=== PATIENT | female | born 1965 | race Caucasian/White ===

== ENCOUNTER 2017-08-07 16:12 | Inpatient (IN) | payer OTHER ==
--- NOTE | 2017-08-07 17:16 | ED ---
General Adult HPI - General Chief complaint: Weakness Stated complaint: Fatigue Time Seen by Provider: 08/07/17 16:31 Source: patient, RN notes reviewed Mode of arrival: wheelchair Limitations: no limitations - History of Present Illness Initial comments: 51-year-old female presents for evaluation of generalized weakness. Patient also reports shortness of breath. His been present for several months. Denies focal weakness. Denies chest pain. States her weakness has been also progressing over several months. Denies fever or chills. Denies headache. Denies vision changes. Denies nausea vomiting or diarrhea. Patient's chronic medical problems include COPD, and hypothyroidism. Patient states her primary care physician recently increased her thyroid medication. She takes albuterol as needed for her COPD. She also reports intermittent cough. Shortness of breath and cough have been constant for several months. - Related Data Home Medications Medication Instructions Recorded Confirmed Albuterol Inhaler [Ventolin Hfa 1 - 2 puff INHALATION RT-Q6H PRN 08/07/17 Inhaler] Albuterol Nebulized [Ventolin 2.5 mg INHALATION RT-Q6H PRN 08/07/17 08/07/17 Nebulized] Budesonide/Formoterol Fumarate 2 puff INHALATION RT-BID 08/07/17 08/07/17 [Symbicort 80-4.5 Mcg Inhaler] Levothyroxine Sodium [Synthroid] 175 mcg PO DAILY 08/07/17 08/07/17 Allergies Allergy/AdvReac Type Severity Reaction Status Date / Time No Known Allergies Allergy Verified 08/07/17 16:42 Review of Systems ROS Statement: Those systems with pertinent positive or pertinent negative responses have been documented in the HPI. ROS Other: All systems not noted in ROS Statement are negative. Past Medical History Past Medical History: COPD, Thyroid Disorder History of Any Multi-Drug Resistant Organisms: None Reported Past Surgical History: No Surgical Hx Reported Past Psychological History: No Psychological Hx Reported Smoking Status: Former smoker Past Alcohol Use History: Occasional Past Drug Use History: None Reported General Exam Limitations: no limitations General appearance: alert, in no apparent distress Head exam: Present: atraumatic, normocephalic Eye exam: Present: normal appearance, PERRL ENT exam: Present: normal exam, mucous membranes moist Neck exam: Present: normal inspection. Absent: tenderness, meningismus Respiratory exam: Present: normal lung sounds bilaterally. Absent: respiratory distress, wheezes Cardiovascular Exam: Present: regular rate, normal rhythm GI/Abdominal exam: Present: soft. Absent: distended, tenderness, guarding Extremities exam: Present: normal inspection, normal capillary refill, other ( Bilateral DP pulses 2+). Absent: pedal edema Neurological exam: Present: alert, oriented X3, CN II-XII intact. Absent: motor sensory deficit Psychiatric exam: Present: normal affect, normal mood Skin exam: Present: warm, dry, intact. Absent: cyanosis, diaphoretic Course Vital Signs 08/07/17 08/07/17 08/07/17 16:24 17:50 18:30 Temperature 98 F Pulse Rate 86 78 90 Respiratory 16 16 18 Rate Blood Pressure 187/93 206/98 208/100 O2 Sat by Pulse 100 99 99 Oximetry EKG Findings - EKG Comments: EKG Findings:: EKG shows normal sinus rhythm, ventricular rate 82, para 178, QRS duration 94, QTC 441, T-wave abnormality in the precordium, no ST segment elevation or depression Medical Decision Making - Medical Decision Making 51-year-old female presenting with generalized weakness and shortness of breath. Patient denies chest pain. Workup includes normal CBC, stable hemoglobin, lactic acid is 3.5, with no clinical signs of dehydration, this may be secondary to hypoperfusion, patient will receive repeat lactic acid after rehydration. troponin is negative. EKG shows T-wave inversion in precordium, no ST segment changes. TSH unremarkable. Chest x-ray shows no acute findings, CT of the brain is negative. Patient's blood pressure remains high, she has no history of hypertension. She receives IV hydralazine and started on Norvasc in the emergency department. Given the elevated blood pressure and EKG changes with no baseline for comparison patient will be admitted for further monitoring, serial troponins, and cardiology evaluation. Diagnosis: Hypertensive urgency, EKG changes - Lab Data Result diagrams: 08/07/17 16:55 08/07/17 16:55 Lab Results 08/07/17 08/07/17 08/07/17 Range/Units 16:55 16:55 16:55 WBC 9.5 (3.8-10.6) k/uL RBC 5.01 (3.80-5.40) m/uL Hgb 14.3 (11.4-16.0) gm/dL Hct 42.8 (34.0-46.0) % MCV 85.4 (80.0-100.0) fL MCH 28.6 (25.0-35.0) pg MCHC 33.5 (31.0-37.0) g/dL RDW 13.4 (11.5-15.5) % Plt Count 362 (150-450) k/uL Neutrophils % 58 % Lymphocytes % 32 % Monocytes % 5 % Eosinophils % 3 % Basophils % 0 % Neutrophils # 5.5 (1.3-7.7) k/uL Lymphocytes # 3.1 (1.0-4.8) k/uL Monocytes # 0.5 (0-1.0) k/uL Eosinophils # 0.2 (0-0.7) k/uL Basophils # 0.0 (0-0.2) k/uL PT (9.0-12.0) sec INR (<1.2) APTT (22.0-30.0) sec Sodium 140 (137-145) mmol/L Potassium 3.6 (3.5-5.1) mmol/L Chloride 106 (98-107) mmol/L Carbon Dioxide 22 (22-30) mmol/L Anion Gap 12 mmol/L BUN 10 (7-17) mg/dL Creatinine 0.80 (0.52-1.04) mg/dL Est GFR (MDRD) Af Amer >60 (>60 ml/min/1.73 sqM) Est GFR (MDRD) Non-Af >60 (>60 ml/min/1.73 sqM) Glucose 179 H (74-99) mg/dL Plasma Lactic Acid Aydin (0.7-2.0) mmol/L Calcium 9.1 (8.4-10.2) mg/dL Magnesium 2.1 (1.6-2.3) mg/dL Total Bilirubin 0.3 (0.2-1.3) mg/dL AST 28 (14-36) U/L ALT 48 (9-52) U/L Alkaline Phosphatase 137 H (38-126) U/L Total Creatine Kinase 63 (30-135) U/L CK-MB (CK-2) 0.5 (0.0-2.4) ng/mL CK-MB (CK-2) Rel Index 0.8 Troponin I <0.012 (0.000-0.034) ng/mL NT-Pro-B Natriuret Pep pg/mL Total Protein 7.5 (6.3-8.2) g/dL Albumin 4.2 (3.5-5.0) g/dL TSH 0.894 (0.465-4.680) mIU/L Urine Color Urine Appearance (Clear) Urine pH (5.0-8.0) Ur Specific [place] (1.001-1.035) Urine Protein (Negative) Urine Glucose (UA) (Negative) Urine Ketones (Negative) Urine Blood (Negative) Urine Nitrite (Negative) Urine Bilirubin (Negative) Urine Urobilinogen (<2.0) mg/dL Ur Leukocyte Esterase (Negative) Urine RBC (0-5) /hpf Urine WBC (0-5) /hpf Ur Squamous Epith Cells (0-4) /hpf Urine Bacteria (None) /hpf Urine Mucus (None) /hpf 08/07/17 08/07/17 08/07/17 Range/Units 16:55 16:55 16:55 WBC (3.8-10.6) k/uL RBC (3.80-5.40) m/uL Hgb (11.4-16.0) gm/dL Hct (34.0-46.0) % MCV (80.0-100.0) fL MCH (25.0-35.0) pg MCHC (31.0-37.0) g/dL RDW (11.5-15.5) % Plt Count (150-450) k/uL Neutrophils % % Lymphocytes % % Monocytes % % Eosinophils % % Basophils % % Neutrophils # (1.3-7.7) k/uL Lymphocytes # (1.0-4.8) k/uL Monocytes # (0-1.0) k/uL Eosinophils # (0-0.7) k/uL Basophils # (0-0.2) k/uL PT 9.6 (9.0-12.0) sec INR 0.9 (<1.2) APTT 22.4 (22.0-30.0) sec Sodium (137-145) mmol/L Potassium (3.5-5.1) mmol/L Chloride (98-107) mmol/L Carbon Dioxide (22-30) mmol/L Anion Gap mmol/L BUN (7-17) mg/dL Creatinine (0.52-1.04) mg/dL Est GFR (MDRD) Af Amer (>60 ml/min/1.73 sqM) Est GFR (MDRD) Non-Af (>60 ml/min/1.73 sqM) Glucose (74-99) mg/dL Plasma Lactic Acid Aydin 3.5 H* (0.7-2.0) mmol/L Calcium (8.4-10.2) mg/dL Magnesium (1.6-2.3) mg/dL Total Bilirubin (0.2-1.3) mg/dL AST (14-36) U/L ALT (9-52) U/L Alkaline Phosphatase (38-126) U/L Total Creatine Kinase (30-135) U/L CK-MB (CK-2) (0.0-2.4) ng/mL CK-MB (CK-2) Rel Index Troponin I (0.000-0.034) ng/mL NT-Pro-B Natriuret Pep 91 pg/mL Total Protein (6.3-8.2) g/dL Albumin (3.5-5.0) g/dL TSH (0.465-4.680) mIU/L Urine Color Urine Appearance (Clear) Urine pH (5.0-8.0) Ur Specific [place] (1.001-1.035) Urine Protein (Negative) Urine Glucose (UA) (Negative) Urine Ketones (Negative) Urine Blood (Negative) Urine Nitrite (Negative) Urine Bilirubin (Negative) Urine Urobilinogen (<2.0) mg/dL Ur Leukocyte Esterase (Negative) Urine RBC (0-5) /hpf Urine WBC (0-5) /hpf Ur Squamous Epith Cells (0-4) /hpf Urine Bacteria (None) /hpf Urine Mucus (None) /hpf 08/07/17 Range/Units 17:55 WBC (3.8-10.6) k/uL RBC (3.80-5.40) m/uL Hgb (11.4-16.0) gm/dL Hct (34.0-46.0) % MCV (80.0-100.0) fL MCH (25.0-35.0) pg MCHC (31.0-37.0) g/dL RDW (11.5-15.5) % Plt Count (150-450) k/uL Neutrophils % % Lymphocytes % % Monocytes % % Eosinophils % % Basophils % % Neutrophils # (1.3-7.7) k/uL Lymphocytes # (1.0-4.8) k/uL Monocytes # (0-1.0) k/uL Eosinophils # (0-0.7) k/uL Basophils # (0-0.2) k/uL PT (9.0-12.0) sec INR (<1.2) APTT (22.0-30.0) sec Sodium (137-145) mmol/L Potassium (3.5-5.1) mmol/L Chloride (98-107) mmol/L Carbon Dioxide (22-30) mmol/L Anion Gap mmol/L BUN (7-17) mg/dL Creatinine (0.52-1.04) mg/dL Est GFR (MDRD) Af Amer (>60 ml/min/1.73 sqM) Est GFR (MDRD) Non-Af (>60 ml/min/1.73 sqM) Glucose (74-99) mg/dL Plasma Lactic Acid Aydin (0.7-2.0) mmol/L Calcium (8.4-10.2) mg/dL Magnesium (1.6-2.3) mg/dL Total Bilirubin (0.2-1.3) mg/dL AST (14-36) U/L ALT (9-52) U/L Alkaline Phosphatase (38-126) U/L Total Creatine Kinase (30-135) U/L CK-MB (CK-2) (0.0-2.4) ng/mL CK-MB (CK-2) Rel Index Troponin I (0.000-0.034) ng/mL NT-Pro-B Natriuret Pep pg/mL Total Protein (6.3-8.2) g/dL Albumin (3.5-5.0) g/dL TSH (0.465-4.680) mIU/L Urine Color Light Yellow Urine Appearance Clear (Clear) Urine pH 5.5 (5.0-8.0) Ur Specific [place] 1.007 (1.001-1.035) Urine Protein Negative (Negative) Urine Glucose (UA) Negative (Negative) Urine Ketones Negative (Negative) Urine Blood Moderate H (Negative) Urine Nitrite Negative (Negative) Urine Bilirubin Negative (Negative) Urine Urobilinogen <2.0 (<2.0) mg/dL Ur Leukocyte Esterase Negative (Negative) Urine RBC 3 (0-5) /hpf Urine WBC <1 (0-5) /hpf Ur Squamous Epith Cells 1 (0-4) /hpf Urine Bacteria Rare H (None) /hpf Urine Mucus Rare H (None) /hpf Disposition Clinical Impression: Hypertensive urgency Disposition: ADMITTED IP TO THIS HOSP Condition: Stable Referrals: Cordelia Markham MD [Primary Care Provider] - 1-2 days Decision to Admit Reason: Admit from EC Decision Date: 08/07/17 Decision Time: 19:01
[2017-08-07 17:18] LABS: Basophils % (A) 0 %; CHCM 34.1; Eosinophils # (A) 0.2 k/uL (0-0.7); Eosinophils % (A) 3 %; HCT 42.8 % (34.0-46.0); HDW 3.15; HGB 14.3 gm/dL (11.4-16.0); Luc # (Auto) 0.15; Luc % (Auto) 2; Lymphocytes # (A) 3.1 k/uL (1.0-4.8); Lymphocytes % (A) 32 %; MCH 28.6 pg (25.0-35.0); MCHC 33.5 g/dL (31.0-37.0); MCV 85.4 fL (80.0-100.0); Mean Platelet Volume 6.8; Monocytes # (A) 0.5 k/uL (0-1.0); Monocytes % (A) 5 %; Neutrophils # (A) 5.5 k/uL (1.3-7.7); Neutrophils % (A) 58 %; RBC 5.01 m/uL (3.80-5.40); RDW 13.4 % (11.5-15.5); WBC 9.5 k/uL (3.8-10.6); WBC (Perox) 9.07
--- NOTE | 2017-08-07 17:20 | XR ---
EXAMINATION TYPE: XR chest 2V DATE OF EXAM: 08/07/2017 COMPARISON: NONE HISTORY: Short of breath TECHNIQUE: Frontal and lateral views of the chest are obtained. FINDINGS: Heart is normal. There are calcified granulomata in both lungs. Lungs are clear of consoli dation. There is no heart failure. Thoracic aorta is atheromatous. Bony thorax is intact. IMPRESSION: No active cardiopulmonary disease.
[2017-08-07 17:24] LABS: ALT 48 U/L (9-52); AST 28 U/L (14-36); Alkaline Phosphatase 137 U/L (38-126); Anion Gap 12 mmol/L; Blood Urea Nitrogen 10 mg/dL (7-17); Calcium 9.1 mg/dL (8.4-10.2); Carbon Dioxide 22 mmol/L (22-30); Chloride 106 mmol/L (98-107); Glucose 179 mg/dL (74-99); Magnesium 2.1 mg/dL (1.6-2.3); Non-African American GFR(MDRD) >60 (>60 ml/min/1.73 sqM); Potassium 3.6 mmol/L (3.5-5.1); Sodium 140 mmol/L (137-145); Total Bilirubin 0.3 mg/dL (0.2-1.3); Total Protein 7.5 g/dL (6.3-8.2)
[2017-08-07 17:29] LABS: Creatine Kinase 63 U/L (30-135)
[2017-08-07] MEDS ORDERED: SODIUM CHLORIDE 0.9% 1,000 ML IV ONE (17:30)
[2017-08-07 17:31] LABS: INR 0.9 (<1.2); Partial Thromboplastin Time 22.4 sec (22.0-30.0); Prothrombin Time 9.6 sec (9.0-12.0)
[2017-08-07 17:42] LABS: Creatine Kinase MB 0.5 ng/mL (0.0-2.4); Troponin I <0.012 ng/mL (0.000-0.034)
--- NOTE | 2017-08-07 17:45 | CT ---
EXAMINATION TYPE: CT brain wo con DATE OF EXAM: 08/07/2017 COMPARISON: NONE HISTORY: Weakness. CT DLP: 1008.3 mGycm Automated exposure control for dose reduction was used. FINDINGS: Ventricles have normal size. There is no mass effect nor midline shift. There is no sign of intracran ial hemorrhage. The calvarium is intact. IMPRESSION: NEGATIVE CT SCAN OF THE BRAIN.
[2017-08-07] MEDS: SODIUM CHLORIDE 0.9% 1,000 ML IV SCH (17:57)
[2017-08-07 18:07] LABS: Appearance,Urine Clear (Clear); Bacteria,Urine Rare /hpf; Bilirubin,Urine Negative (Negative); Glucose,Urine (UA) Negative (Negative); Ketones,Urine Negative (Negative); Leukocyte Esterase,Urine Negative (Negative); Mucus,Urine Rare /hpf; Nitrite,Urine Negative (Negative); PH, Urine 5.5 (5.0-8.0); Particle Count 757; Protein,Urine Negative (Negative); RBC,Urine 3 /hpf (0-5); Specific Gravity,Urine 1.007 (1.001-1.035); Squamous Epithelial Cell,Urine 1 /hpf (0-4); UA Billing (MACRO vs. MICRO) MICRO; Urobilinogen,Urine <2.0 mg/dL (<2.0); WBC,Urine <1 /hpf (0-5)
[2017-08-07] MEDS ORDERED: amLODIPine 5 MG TAB PO STA (18:08)
[2017-08-07] MEDS ORDERED: hydrALAZINE HCL 20 MG/ML 1 ML VIAL IVP STA (18:08)
[2017-08-07] MEDS ORDERED: ASPIRIN 325 MG TAB PO STA (18:54)
[2017-08-07] MEDS ORDERED: NALOXONE 0.4 MG/ML 1 ML VIAL IV PRN (19:01)
[2017-08-07] MEDS ORDERED: ACETAMINOPHEN TAB 325 MG TAB PO PRN (19:01)
[2017-08-07] MEDS ORDERED: ONDANSETRON 4 MG/2 ML VIAL IVP PRN (19:01)
[2017-08-07 23:31] LABS: Creatine Kinase 58 U/L (30-135)
[2017-08-07 23:42] LABS: Creatine Kinase MB 0.4 ng/mL (0.0-2.4); Troponin I <0.012 ng/mL (0.000-0.034)
[2017-08-08 05:51] LABS: Basophils % (A) 1 %; CH 28.6; CHCM 33.5; Eosinophils # (A) 0.2 k/uL (0-0.7); Eosinophils % (A) 3 %; HCT 40.3 % (34.0-46.0); HDW 2.93; HGB 13.2 gm/dL (11.4-16.0); Luc # (Auto) 0.15; Luc % (Auto) 2; Lymphocytes # (A) 2.6 k/uL (1.0-4.8); Lymphocytes % (A) 33 %; MCH 28.2 pg (25.0-35.0); MCHC 32.9 g/dL (31.0-37.0); MCV 85.9 fL (80.0-100.0); Mean Platelet Volume 6.9; Monocytes # (A) 0.5 k/uL (0-1.0); Monocytes % (A) 6 %; Neutrophils # (A) 4.5 k/uL (1.3-7.7); Neutrophils % (A) 56 %; RBC 4.69 m/uL (3.80-5.40); RDW 14.7 % (11.5-15.5)
[2017-08-08] MEDS: SODIUM CHLORIDE 0.9% 1,000 ML IV SCH (06:05)
[2017-08-08 06:10] LABS: ALT 49 U/L (9-52); AST 24 U/L (14-36); Alkaline Phosphatase 126 U/L (38-126); Anion Gap 8 mmol/L; Blood Urea Nitrogen 9 mg/dL (7-17); Calcium 9.3 mg/dL (8.4-10.2); Carbon Dioxide 27 mmol/L (22-30); Chloride 106 mmol/L (98-107); Glucose 115 mg/dL (74-99); Magnesium 2.1 mg/dL (1.6-2.3); Non-African American GFR(MDRD) >60 (>60 ml/min/1.73 sqM); Potassium 4.4 mmol/L (3.5-5.1); Sodium 141 mmol/L (137-145); Total Bilirubin 0.5 mg/dL (0.2-1.3); Total Protein 6.8 g/dL (6.3-8.2)
[2017-08-08 06:17] LABS: Creatine Kinase 53 U/L (30-135)
[2017-08-08 06:30] LABS: Creatine Kinase MB 0.5 ng/mL (0.0-2.4); Troponin I <0.012 ng/mL (0.000-0.034)
--- NOTE | 2017-08-08 08:15 | P.CRDCN ---
History of Present Illness Consult date: 08/08/17 Chief complaint: Generalized weakness History of present illness: This is a pleasant 51-year-old female patient with a past medical history significant for COPD and thyroid disorder without any history of CAD or diabetes or hypertension from before presented to the hospital complaining of fatigue and weakness for the last several days. She did not have any symptoms of chest pain or discomfort, she does have exertional dyspnea related to her COPD but it did not get worse lately. No dizziness or lightheadedness and no syncope. In the emergency room, she was hypertensive. She never been diagnosed with hypertension in the past. She was started on Norvasc at 5 mg by mouth daily and was admitted to the hospital for further evaluation. The EKG showed sinus rhythm with T-wave inversion in the anterolateral leads. I don't have any old EKG to compare it to this one. The cardiac enzymes were checked and came in to be unremarkable. The chest x-ray showed no acute abnormalities. She underwent a computed tomography scan of the brain which did not show any acute abnormalities as well. The patient stated that she never seen any quality process auditor in the past and never had any stress test or any cardiac testing before. Past Medical History Past Medical History: COPD, GERD/Reflux, Thyroid Disorder History of Any Multi-Drug Resistant Organisms: None Reported Past Surgical History: Uterine Ablation Additional Past Surgical History / Comment(s): "surgury on mucsles of eyes" Past Anesthesia/Blood Transfusion Reactions: No Reported Reaction Smoking Status: Former smoker - Past Family History Mother Family Medical History: Myocardial Infarction ([place]) Additional Family Medical History / Comment(s): mom from [place] age 56 Brother(s) Family Medical History: Cancer Father Family Medical History: Cancer Medications and Allergies Home Medications Medication Instructions Recorded Confirmed Type Albuterol Inhaler [Ventolin Hfa 1 - 2 puff INHALATION RT-Q6H PRN 08/07/17 History Inhaler] Albuterol Nebulized [Ventolin 2.5 mg INHALATION RT-Q6H PRN 08/07/17 08/07/17 History Nebulized] Budesonide/Formoterol Fumarate 2 puff INHALATION RT-BID 08/07/17 08/07/17 History [Symbicort 80-4.5 Mcg Inhaler] Levothyroxine Sodium [Synthroid] 175 mcg PO DAILY 08/07/17 08/07/17 History Allergies Allergy/AdvReac Type Severity Reaction Status Date / Time No Known Allergies Allergy Verified 08/07/17 16:42 Physical Exam Vitals: Vital Signs Temp Pulse Pulse Resp BP BP BP 08/08/17 03:15 97 F L 82 18 139/90 151/95 08/07/17 23:54 96.8 F L 85 18 150/90 08/07/17 21:03 156/85 08/07/17 20:00 96.5 F L 79 20 177/107 08/07/17 19:23 80 18 171/80 08/07/17 18:59 80 18 172/81 08/07/17 18:30 90 18 208/100 08/07/17 17:50 78 16 206/98 08/07/17 16:24 98 F 86 16 187/93 Pulse Ox 08/08/17 03:15 97 08/07/17 23:54 97 08/07/17 21:03 08/07/17 20:00 100 08/07/17 19:23 100 08/07/17 18:59 98 08/07/17 18:30 99 08/07/17 17:50 99 08/07/17 16:24 100 Intake and Output 08/07/17 08/08/17 08/08/17 22:59 06:59 14:59 Intake Total 200 800 Balance 200 800 Intake: IV 200 800 Sodium Chloride 0.9% 1, 200 800 000 ml @ 100 mls/hr IV . Q10H [facility] Rx#:[id number] Other: # Voids 2 Weight 102.058 kg 110.6 kg - Constitutional General appearance: no acute distress - Respiratory Respiratory: bilateral: CTA - Cardiovascular Rhythm: regular Heart sounds: normal: S1, S2 Results 08/08/17 05:22 08/08/17 05:22 Cardiac Enzymes 08/07/17 08/07/17 08/07/17 Range/Units 16:55 16:55 22:34 AST 28 (14-36) U/L CK-MB (CK-2) 0.5 0.4 (0.0-2.4) ng/mL Troponin I <0.012 <0.012 (0.000-0.034) ng/mL 08/08/17 08/08/17 Range/Units 05:22 05:22 AST 24 (14-36) U/L CK-MB (CK-2) 0.5 (0.0-2.4) ng/mL Troponin I <0.012 (0.000-0.034) ng/mL Coagulation 08/07/17 Range/Units 16:55 PT 9.6 (9.0-12.0) sec APTT 22.4 (22.0-30.0) sec CBC 08/07/17 08/08/17 Range/Units 16:55 05:22 WBC 9.5 8.0 (3.8-10.6) k/uL RBC 5.01 4.69 (3.80-5.40) m/uL Hgb 14.3 13.2 (11.4-16.0) gm/dL Hct 42.8 40.3 (34.0-46.0) % Plt Count 362 316 (150-450) k/uL Comprehensive Metabolic Panel 08/07/17 08/08/17 Range/Units 16:55 05:22 Sodium 140 141 (137-145) mmol/L Potassium 3.6 4.4 (3.5-5.1) mmol/L Chloride 106 106 (98-107) mmol/L Carbon Dioxide 22 27 (22-30) mmol/L BUN 10 9 (7-17) mg/dL Creatinine 0.80 0.89 (0.52-1.04) mg/dL Glucose 179 H 115 H (74-99) mg/dL Calcium 9.1 9.3 (8.4-10.2) mg/dL AST 28 24 (14-36) U/L ALT 48 49 (9-52) U/L Alkaline Phosphatase 137 H 126 (38-126) U/L Total Protein 7.5 6.8 (6.3-8.2) g/dL Albumin 4.2 3.7 (3.5-5.0) g/dL Current Medications Generic Name Dose Route Start Last Admin Trade Name Freq PRN Reason Stop Dose Admin Acetaminophen 650 mg 08/07/17 19:01 Tylenol Tab PO Q6HR PRN Mild Pain or Fever > 100.5 Amlodipine Besylate 5 mg 08/08/17 09:00 Norvasc PO 08/08/17 09:01 ONCE ONE Amlodipine Besylate 10 mg 08/09/17 09:00 Norvasc PO DAILY [facility] Sodium Chloride 1,000 mls @ 100 mls/hr 08/07/17 17:30 08/08/17 06:05 Saline 0.9% IV 100 mls/hr .Q10H [facility] Administration Naloxone HCl 0.2 mg 08/07/17 19:01 Narcan IV Q2M PRN Opioid Reversal Ondansetron HCl 4 mg 08/07/17 19:01 Zofran IVP Q8HR PRN Nausea And Vomiting Intake and Output 08/07/17 08/08/17 08/08/17 22:59 06:59 14:59 Intake Total 200 800 Balance 200 800 Intake: IV 200 800 Sodium Chloride 0.9% 1, 200 800 000 ml @ 100 mls/hr IV . Q10H [facility] Rx#:[id number] Other: # Voids 2 Weight 102.058 kg 110.6 kg 08/08/17 05:22 08/08/17 05:22 Assessment and Plan Assessment: This is a pleasant 51-year-old female patient with known COPD and thyroid disorder presented to the hospital with weakness and fatigue. The EKG showed sinus rhythm with T-wave inversion in the anterolateral leads concerning for ischemia if these changes are noted. The cardiac enzymes were checked and came in to be unremarkable. I am going to increase the dose of Norvasc to 10 mg by mouth daily for better blood pressure control. I will obtain an echocardiogram was Doppler. I discussed with her the need to have a stress test to rule out any severe underlying CAD behind her weakness and abnormal EKG but the patient would like to go home and have the test done as an outpatient. I will repeat the EKG this morning and get the echocardiogram and then decide about sending the patient home later on today.
[2017-08-08] MEDS ORDERED: amLODIPine 5 MG TAB PO SCH (09:00)
[2017-08-08] MEDS ORDERED: amLODIPine 5 MG TAB PO ONE (09:00)
[2017-08-08 09:04] VITALS: RESP 16
[2017-08-08 11:59] VITALS: BP 158/96; PULSE 84; TEMP 97.1
--- NOTE | 2017-08-08 14:57 | P.DS ---
Providers Date of admission: 08/07/17 19:01 Attending physician: Adithya Grier Consults: 08/07/17 19:02 Consult Physician Urgent Consulting Provider: Campos Garcia Consult Reason/Comments: Hypertensive urgency Do you want consulting provider notified?: Yes, Notify in am Primary care physician: Cordelia Markham [facility] Course: Please refer to my HPI patient's TSH is essentially within normal limits Patient Condition at Discharge: Stable Plan - Discharge Summary Discharge Rx Participant: No New Discharge Prescriptions: New amLODIPine [Norvasc] 5 mg PO DAILY #30 tab Continue Levothyroxine Sodium [Synthroid] 175 mcg PO DAILY Albuterol Nebulized [Ventolin Nebulized] 2.5 mg INHALATION RT-Q6H PRN PRN Reason: Shortness Of Breath Albuterol Inhaler [Ventolin Hfa Inhaler] 1 - 2 puff INHALATION RT-Q6H PRN PRN Reason: Shortness Of Breath Budesonide/Formoterol Fumarate [Symbicort 80-4.5 Mcg Inhaler] 2 puff INHALATION RT-BID Discharge Medication List Albuterol Inhaler [Ventolin Hfa Inhaler] 1 - 2 puff INHALATION RT-Q6H PRN [History] Albuterol Nebulized [Ventolin Nebulized] 2.5 mg INHALATION RT-Q6H PRN 08/07/17 [ History] Budesonide/Formoterol Fumarate [Symbicort 80-4.5 Mcg Inhaler] 2 puff INHALATION RT-BID 08/07/17 [History] Levothyroxine Sodium [Synthroid] 175 mcg PO DAILY 08/07/17 [History] amLODIPine [Norvasc] 5 mg PO DAILY #30 tab 08/08/17 [Rx] Follow up Appointment(s)/Referral(s): Campos Garcia MD [STAFF PHYSICIAN] - 3 Days (Please call to make a follow up appoitnment. Offices are closed at this time.) Cordelia Markham MD [Primary Care Provider] - 3 Days (Please call to make a follow up appoitnment. Offices are closed at this time.) Patient Instructions/Handouts: Hypertensive Crisis (DC), Hypertension (DC) Discharge/Stand Alone Forms: Work/Release Restrictions Form Discharge Disposition: HOME SELF-CARE
--- NOTE | 2017-08-08 14:57 | P.HPIM ---
History of Present Illness 51-year-old female came in with the complaints of dizziness patient had normal EKG patient was a valid by cardiology do not have an echo cardiac murmur available although patient does not have any valvular abnormalities clinically without any murmurs. Patient denied any fever, chills, nausea, vomiting patient blood pressure has come down patient's symptoms completely resolved at this point of time patient was started on amlodipine and will be discharged today. Patient had a CAT scan of the chest which is essentially negative patient denied any chest pain EKG showed some T-wave inversions in anterolateral leads patient was asked to follow-up with the cardiology as an outpatient and outpatient stress test at the time echocardiogram can be obtained as well. Patient does not have any signs or symptoms of sepsis at this time. Review of Systems REVIEW OF SYSTEMS: CONSTITUTIONAL: No fever, no malaise, no fatigue. HEENT: No recent visual problems or hearing problems. Denied any sore throat. CARDIOVASCULAR: No chest pain, orthopnea, PND, no palpitations, no syncope. PULMONARY: No shortness of breath, no cough, no hemoptysis. GASTROINTESTINAL: No diarrhea, no nausea, no vomiting, no abdominal pain. Normoactive bowel sounds. NEUROLOGICAL: No headaches, no weakness, no numbness. HEMATOLOGICAL: Denies any bleeding or petechiae. GENITOURINARY: Denies any burning micturition, frequency, or urgency. MUSCULOSKELETAL/RHEUMATOLOGICAL: Denies any joint pain, swelling, or any muscle pain. ENDOCRINE: Denies any polyuria or polydipsia. The rest of the 14-point review of systems is negative. Past Medical History Past Medical History: COPD, GERD/Reflux, Thyroid Disorder History of Any Multi-Drug Resistant Organisms: None Reported Past Surgical History: Uterine Ablation Additional Past Surgical History / Comment(s): "surgury on mucsles of eyes" Past Anesthesia/Blood Transfusion Reactions: No Reported Reaction Smoking Status: Former smoker - Past Family History Mother Family Medical History: Myocardial Infarction ([place]) Additional Family Medical History / Comment(s): mom from [place] age 56 Brother(s) Family Medical History: Cancer Father Family Medical History: Cancer Medications and Allergies Home Medications Medication Instructions Recorded Confirmed Type Albuterol Inhaler [Ventolin Hfa 1 - 2 puff INHALATION RT-Q6H PRN 08/07/17 History Inhaler] Albuterol Nebulized [Ventolin 2.5 mg INHALATION RT-Q6H PRN 08/07/17 08/07/17 History Nebulized] Budesonide/Formoterol Fumarate 2 puff INHALATION RT-BID 08/07/17 08/07/17 History [Symbicort 80-4.5 Mcg Inhaler] Levothyroxine Sodium [Synthroid] 175 mcg PO DAILY 08/07/17 08/07/17 History amLODIPine [Norvasc] 5 mg PO DAILY #30 tab 08/08/17 Rx Allergies Allergy/AdvReac Type Severity Reaction Status Date / Time No Known Allergies Allergy Verified 08/07/17 16:42 Physical Exam Vitals: Vital Signs Temp Pulse Pulse Resp BP BP BP 08/08/17 11:57 97.1 F L 84 16 158/96 08/08/17 11:44 88 16 08/08/17 08:00 96.7 F L 88 16 162/96 08/08/17 03:15 97 F L 82 18 139/90 151/95 08/07/17 23:54 96.8 F L 85 18 150/90 08/07/17 21:03 156/85 08/07/17 20:00 96.5 F L 79 20 177/107 08/07/17 19:23 80 18 171/80 08/07/17 18:59 80 18 172/81 08/07/17 18:30 90 18 208/100 08/07/17 17:50 78 16 206/98 08/07/17 16:24 98 F 86 16 187/93 Pulse Ox 08/08/17 11:57 95 08/08/17 11:44 08/08/17 08:00 97 08/08/17 03:15 97 08/07/17 23:54 97 08/07/17 21:03 08/07/17 20:00 100 08/07/17 19:23 100 08/07/17 18:59 98 08/07/17 18:30 99 08/07/17 17:50 99 08/07/17 16:24 100 Intake and Output 08/07/17 08/08/17 08/08/17 22:59 06:59 14:59 Intake Total 200 800 740 Output Total 650 Balance 200 800 90 Intake: IV 200 800 500 Sodium Chloride 0.9% 1, 200 800 500 000 ml @ 100 mls/hr IV . Q10H ERUM Rx#:[id number] Oral 240 Output: Urine 650 Other: # Voids 2 2 Weight 102.058 kg 110.6 kg PHYSICAL EXAMINATION: GENERAL: The patient is alert and oriented x3, not in any acute distress. Well developed, well nourished. HEENT: Pupils are round and equally reacting to light. EOMI. No scleral icterus. No conjunctival pallor. Normocephalic, atraumatic. No pharyngeal erythema. No thyromegaly. CARDIOVASCULAR: S1 and S2 present. No murmurs, rubs, or gallops. PULMONARY: Chest is clear to auscultation, no wheezing or crackles. ABDOMEN: Soft, nontender, nondistended, normoactive bowel sounds. No palpable organomegaly. MUSCULOSKELETAL: No joint swelling or deformity. EXTREMITIES: No cyanosis, clubbing, or pedal edema. NEUROLOGICAL: Gross neurological examination did not reveal any focal deficits. SKIN: No rashes. Results CBC & Chem 7: 08/08/17 05:22 08/08/17 05:22 Labs: Abnormal Lab Results - Last 24 Hours (Table) 08/07/17 08/07/17 08/07/17 Range/Units 16:55 16:55 17:55 Glucose 179 H (74-99) mg/dL Plasma Lactic Acid Aydin 3.5 H* (0.7-2.0) mmol/L Alkaline Phosphatase 137 H (38-126) U/L Urine Blood Moderate H (Negative) Urine Bacteria Rare H (None) /hpf Urine Mucus Rare H (None) /hpf 08/08/17 Range/Units 05:22 Glucose 115 H (74-99) mg/dL Plasma Lactic Acid Aydin (0.7-2.0) mmol/L Alkaline Phosphatase (38-126) U/L Urine Blood (Negative) Urine Bacteria (None) /hpf Urine Mucus (None) /hpf Assessment and Plan Plan: 1 dizziness and lightheadedness: Unsure of the etiology patient's symptoms resolved at this point of time patient also is hypertensive consistently because of which patient was started on low-dose of amlodipine patient was asked to check the blood pressure at home. As of the T-wave inversions on EKG cardiology is according an outpatient stress test. #2 T-wave inversions EKG further management as mentioned above unsure whether these inversions or new or old. #3 hypothyroidism #4 gastroesophageal reflux disease #5 COPD without any acute exacerbation
--- NOTE | 2017-08-08 15:07 | ECHOF ---
Referral Reason:HTN MEASUREMENTS -------- HEIGHT: 170.2 cm WEIGHT: 110.2 kg BP: 106/55 IVSd: 1.2 cm (0.6 - 1.1) LVIDd: 3.8 cm (3.9 - 5.3) LVPWd: 1.5 cm (0.6 - 1.1) IVSs: 1.4 cm LVIDs: 2.6 cm LVPWs: 1.2 cm Ao Diam: 3.5 cm (2.0 - 3.7) AV Cusp: 1.8 cm (1.5 - 2.6) LA Diam: 3.7 cm (2.7 - 3.8) MV E Dimas: 1.02 m/s MV DecT: 168 ms MV A Dimas: 0.89 m/s MV E/A Ratio: 1.15 RAP: 5.00 mmHg RVSP: 12.93 mmHg FINDINGS -------- Sinus rhythm. This was a techncally difficult study with suboptimal views, , Definity utilized for enhancement of i mages. The left ventricular size is normal. There is mild concentric left ventricular hypertrophy. Overa ll left ventricular systolic function is normal with, an EF between 55 - 60 %. The right ventricle is normal in size. The left atrial size is normal. The right atrial size is normal. 1.5MG OF DEFINITY UTLIZED: 2 OR MORE WALL SEGMENTS NOT VISUALIZED. The aortic valve was not well visualized. Mild mitral regurgitation is present. Mild tricuspid regurgitation present. Right ventricular systolic pressure is normal at < 35 mmHg. The pulmonic valve was not well visualized. The aortic root size is normal. There is no pericardial effusion. CONCLUSIONS -------- 1. This was a techncally difficult study with suboptimal views, , Definity utilized for enhancement o f images. 2. The left ventricular size is normal. 3. There is mild concentric left ventricular hypertrophy. 4. Overall left ventricular systolic function is normal with, an EF between 55 - 60 %. 5. The right ventricle is normal in size. 6. The left atrial size is normal. 7. The right atrial size is normal. 8. 1.5MG OF DEFINITY UTLIZED: 2 OR MORE WALL SEGMENTS NOT VISUALIZED. 9. The aortic valve was not well visualized. 10. Mild mitral regurgitation is present. 11. Right ventricular systolic pressure is normal at < 35 mmHg. 12. The pulmonic valve was not well visualized. 13. The aortic root size is normal. 14. There is no pericardial effusion. BANDER HAND: Valerie Winters RDCS
[2017-08-09] MEDS ORDERED: amLODIPine 10 MG TAB PO SCH (09:00)
== END 2017-08-08 12:14 | disposition home or self-care (01) | DRG 305 ==
LOC: EC 16:12 → 6SEL 19:01
PROVIDERS: ADMIT Hospitalist; ATTEND Hospitalist
DX: I16.0 Hypertensive urgency (principal); J44.9 Chronic obstructive pulmonary disease, unspecified; E03.9 Hypothyroidism, unspecified; K21.9 Gastro-esophageal reflux disease without esophagitis; R42 Dizziness and giddiness; R94.31 Abnormal electrocardiogram [ECG] [EKG]; Z79.899 Other long term (current) drug therapy; Z79.51 Long term (current) use of inhaled steroids; Z87.891 Personal history of nicotine dependence; Z82.49 Family history of ischemic heart disease and other diseases of the circulatory system
CPT/HCPCS: 36415; 70450; 71020; 80053; 81001; 82550; 82553; 83605; 83735; 83880; 84443; 84484; 85025; 85610; 85730; 93005; 93306; 96361; 96374; 99285

== ENCOUNTER 2024-07-01 09:58 | Emergency (ER) | payer OTHER ==
[2024-07-01 10:11] VITALS: RESP 18
--- NOTE | 2024-07-01 10:52 | ED ---
General Adult HPI - General Chief complaint: Extremity Injury, Lower Stated complaint: [facility]-L leg injury Time Seen by Provider: 07/01/24 10:13 Source: patient, RN notes reviewed Mode of arrival: wheelchair Limitations: no limitations - History of Present Illness Initial comments: 58-year-old female presents emergency department chief complaint of left leg injury. Patient states she was at work when someone stepped behind her states that she was moving a cart this mesh into her left leg. She does have an abrasion noted tetanus is up-to-date. Patient states there is throbbing pain to her left lynch. - Related Data Home Medications Medication Instructions Recorded Confirmed Albuterol Inhaler [Ventolin Hfa 1 - 2 puff INHALATION RT-Q6H PRN 08/07/17 08/07/17 Inhaler] Albuterol Nebulized [Ventolin 2.5 mg INHALATION RT-Q6H PRN 08/07/17 08/07/17 Nebulized] Budesonide/Formoterol Fumarate 2 puff INHALATION RT-BID 08/07/17 08/07/17 [Symbicort 80-4.5 Mcg Inhaler] Levothyroxine Sodium [Synthroid] 175 mcg PO DAILY 08/07/17 08/07/17 Previous Rx's Medication Instructions Recorded amLODIPine [Norvasc] 5 mg PO DAILY #30 tab 08/08/17 Allergies Allergy/AdvReac Type Severity Reaction Status Date / Time No Known Allergies Allergy Verified 07/01/24 10:11 Review of Systems ROS Statement: Those systems with pertinent positive or pertinent negative responses have been documented in the HPI. ROS Other: All systems not noted in ROS Statement are negative. Past Medical History Past Medical History: COPD, GERD/Reflux, Thyroid Disorder History of Any Multi-Drug Resistant Organisms: None Reported Past Surgical History: Uterine Ablation Additional Past Surgical History / Comment(s): "surgury on mucsles of eyes" Past Anesthesia/Blood Transfusion Reactions: No Reported Reaction Past Psychological History: No Psychological Hx Reported Past Alcohol Use History: Occasional Past Drug Use History: None Reported - Past Family History Mother Family Medical History: Myocardial Infarction ([place]) Additional Family Medical History / Comment(s): mom from [place] age 56 Brother(s) Family Medical History: Cancer Father Family Medical History: Cancer General Exam Limitations: no limitations General appearance: alert, in no apparent distress Head exam: Present: atraumatic, normocephalic, normal inspection Eye exam: Present: normal appearance, PERRL, EOMI. Absent: scleral icterus, conjunctival injection, periorbital swelling Respiratory exam: Present: normal lung sounds bilaterally. Absent: respiratory distress, wheezes, rales, rhonchi, stridor Cardiovascular Exam: Present: regular rate, normal rhythm, normal heart sounds. Absent: systolic murmur, diastolic murmur, rubs, gallop, clicks Extremities exam: Present: other (Left anterior lower leg there is an abrasion noted, there is tenderness with palpation neurovascular intact no tenderness proximal or distal) Course Vital Signs 07/01/24 07/01/24 07/01/24 10:08 11:11 12:12 Temperature 97.7 F 98.2 F 98.0 F Pulse Rate 80 73 78 Respiratory 18 18 18 Rate Blood Pressure 166/74 162/88 151/81 O2 Sat by Pulse 98 97 95 Oximetry Medical Decision Making - Medical Decision Making Was pt. sent in by a medical professional or institution (Dr. PA, COMPUTER PROGRAMMER ANALYST, urgent care, hospital, or [facility]...) When possible be specific @ -Work Did you speak to anyone other than the patient for history (EMS, parent, family, police, friend...)? What history was obtained from this source @ -No Did you review nursing and triage notes (agree or disagree)? Why? @ -I reviewed and agree with nursing and triage notes Were old charts reviewed (outside hosp., previous admission, EMS record, old EKG, old radiological studies, urgent care reports/EKG's, [facility] records)? Report findings @ -No old charts were reviewed Differential Diagnosis (chest pain, altered mental status, abdominal pain women, abdominal pain men, vaginal bleeding, weakness, fever, dyspnea, syncope, headache, dizziness, GI bleed, back pain, seizure, CVA, palpatations, mental health, musculoskeletal)? @ -Leg contusion, abrasion, leg fracture EKG interpreted by me (3pts min.). @ -None X-rays interpreted by me (1pt min.). @ -X-ray left tib-fib no acute fracture CT interpreted by me (1pt min.). @ -None done U/S interpreted by me (1pt. min.). @ -None done What testing was considered but not performed or refused? (CT, X-rays, U/S, labs)? Why? @ -None What meds were considered but not given or refused? Why? @ -None Did you discuss the management of the patient with other professionals (professionals i.e. , PA, COMPUTER PROGRAMMER ANALYST, lab, RT, psych nurse, social work administrator, hand singer, teacher, safety security officer, machine adjuster leader case trim)? Give summary @ -No Was smoking cessation discussed for >3mins.? @ -No Was critical care preformed (if so, how long)? @ -No Were there social determinants of health that impacted care today? How? (Homelessness, low income, unemployed, alcoholism, drug addiction, transportation, low edu. Level, literacy, decrease access to med. care, long-term, rehab)? @ -No Was there de-escalation of care discussed even if they declined (Discuss DNR or withdrawal of care, Hospice)? DNR status @ -No What co-morbidities impacted this encounter? (DM, HTN, Smoking, COPD, CAD, Cancer, CVA, ARF, Chemo, Hep., AIDS, mental health diagnosis, sleep apnea, morbid obesity)? @ -None Was patient admitted / discharged? Hospital course, mention meds given and route, prescriptions, significant lab abnormalities, going to OR and other pertinent info. @ -Discharge patient has a left tib-fib contusion no acute fracture on x-ray abrasion was cleaned, dressed with bacitracin patient's tetanus up-to-date Undiagnosed new problem with uncertain prognosis? @ -No Drug Therapy requiring intensive monitoring for toxicity (Heparin, Nitro, Insulin, Cardizem)? @ -No Were any procedures done? @ -No Diagnosis/symptom? @ -Left leg contusion Acute, or Chronic, or Acute on Chronic? @Acute Uncomplicated (without systemic symptoms) or Complicated (systemic symptoms)? @ -Uncomplicated Side effects of treatment? @ -No Exacerbation, Progression, or Severe Exacerbation? @ -No Poses a threat to life or bodily function? How? (Chest pain, [place], ID, pneumonia, PE, COPD, DKA, ARF, appy, cholecystitis, CVA, Diverticulitis, Homicidal, Suicidal, threat to staff... and all critical care pts) @ -No Disposition Clinical Impression: Contusion of leg, left, Leg abrasion Disposition: HOME SELF-CARE Condition: Stable Instructions (If sedation given, give patient instructions): Contusion in Adults (ED) Additional Instructions: Please return to the Emergency Department if symptoms worsen or any other concerns. Is patient prescribed a controlled substance at d/c from ED?: No Referrals: None,Stated [REFERRING] - 1-2 days Time of Disposition: 11:49
[2024-07-01] MEDS: BACITRACIN OINT 1 EACH PACKET TOPICAL ONE (11:07)
--- NOTE | 2024-07-01 11:30 | XR ---
EXAMINATION TYPE: XR tibia fibula LT DATE OF EXAM: 07/01/2024 COMPARISON: None HISTORY: Abrasions grapevine surface of leg TECHNIQUE: 2 view right tibia and fibula FINDINGS: No acute fracture or dislocation evident. No radiopaque foreign bodies evident. Soft tissue s appear normal. IMPRESSION: 1. No acute abnormality left tibia and fibula [facility], , 07/01/2024 11:27 AM
[2024-07-01 12:13] VITALS: BP 151/81; PULSE 78; TEMP 98
== END 2024-07-01 12:12 | disposition home or self-care (01) ==
LOC: EC 09:58
DX: S89.90XA Unspecified injury of unspecified lower leg, initial encounter
CPT/HCPCS: 99283

== ENCOUNTER → 2024-07-13 | Outpatient (CLI) | payer OTHER ==
--- NOTE | 2024-07-13 16:49 | US ---
EXAMINATION TYPE: US venous doppler duplex LE LT DATE OF EXAM: 07/13/2024 4:34 PM COMPARISON: NONE CLINICAL INDICATION: Female, 58 years old with history of S80.12XA S81.802A M25.552; Pt states work i njury to left leg TECHNIQUE: The lower extremity deep venous system is examined utilizing real time linear array sonog mariana with graded compression, color doppler sonography, and spectral doppler. SIDE PERFORMED: Left FINDINGS: VESSELS IMAGED: Common Femoral Vein Deep Femoral Vein Greater Saphenous Vein * Femoral Vein Popliteal Vein Small Saphenous Vein * Proximal Calf Veins (* superficial vessels) Left Leg: Negative for DVT Results called to Emilio RICHARDSON at time of exam Grayscale, color doppler, spectral doppler imaging performed of the deep veins of the lower extremiti es. IMPRESSION: 1. No evidence of DVT [facility], , 07/13/2024 4:46 PM
--- NOTE | 2024-07-13 17:14 | XR ---
EXAMINATION TYPE: XR Hip Complete LT DATE OF EXAM: 07/13/2024 CLINICAL HISTORY: pain TECHNIQUE: AP and frogleg views of the left hip are obtained. COMPARISON: None. FINDINGS: There is no acute fracture/dislocation evident. The joint space appears within normal li mits. The overlying soft tissue appears unremarkable. IMPRESSION: 1. There is no acute fracture or dislocation.ICD 10 NO FRACTURE, INITIAL EVALUATION [facility], , 07/13/2024 5:12 PM
--- NOTE | 2024-07-13 17:14 | XR ---
EXAMINATION TYPE: XR tibia fibula LT DATE OF EXAM: 07/13/2024 CLINICAL HISTORY: pain TECHNIQUE: AP and lateral images of the left tibia and fibula are obtained. COMPARISON: None. FINDINGS: There is no acute fracture/dislocation evident. The joint spaces appear within normal grimes its. The overlying soft tissue appears unremarkable. IMPRESSION: There is no acute fracture or dislocation seen. ICD 10 NO FRACTURE, INITIAL EVALUATION [facility], , 07/13/2024 5:12 PM
== END | disposition home or self-care (01) ==
LOC: RADUSWWP 16:13
PROVIDERS: ATTEND Emergency Medicine
CPT/HCPCS: 73502

== ENCOUNTER 2025-01-16 07:42 | Observation (INO) | payer BC, OTHER ==
--- NOTE | 2025-01-16 07:50 | ED ---
General Adult HPI - General Stated complaint: Chest pain Time Seen by Provider: 01/16/25 07:45 Source: patient, EMS, RN notes reviewed Mode of arrival: EMS Limitations: no limitations - History of Present Illness Initial comments: Patient is a 59-year-old female present to the emergency department with concerns with chest discomfort. Patient did have some tingling of her left arm earlier this morning however chest discomfort started prior to arrival on her way to work. Discomfort to get up to 6/10. Discomfort felt like pressure. No associated dyspnea, nausea, or diaphoresis. Symptoms resolved with nitroglycerin and aspirin by EMS. - Related Data Home Medications Medication Instructions Recorded Confirmed Albuterol Inhaler [Ventolin Hfa 1 - 2 puff INHALATION RT-Q6H PRN 08/07/17 08/07/17 Inhaler] Albuterol Nebulized [Ventolin 2.5 mg INHALATION RT-Q6H PRN 08/07/17 08/07/17 Nebulized] Budesonide/Formoterol Fumarate 2 puff INHALATION RT-BID 08/07/17 08/07/17 [Symbicort 80-4.5 Mcg Inhaler] Levothyroxine Sodium [Synthroid] 175 mcg PO DAILY 08/07/17 08/07/17 Previous Rx's Medication Instructions Recorded amLODIPine [Norvasc] 5 mg PO DAILY #30 tab 08/08/17 Allergies Allergy/AdvReac Type Severity Reaction Status Date / Time No Known Allergies Allergy Verified 01/16/25 07:54 Review of Systems ROS Statement: Those systems with pertinent positive or pertinent negative responses have been documented in the HPI. ROS Other: All systems not noted in ROS Statement are negative. Constitutional: Denies: fever Eyes: Denies: eye pain ENT: Denies: ear pain Cardiovascular: Reports: chest pain Gastrointestinal: Denies: nausea, vomiting Musculoskeletal: Denies: back pain Past Medical History Past Medical History: COPD, GERD/Reflux, Thyroid Disorder History of Any Multi-Drug Resistant Organisms: None Reported Past Surgical History: Uterine Ablation Additional Past Surgical History / Comment(s): "surgury on mucsles of eyes" Past Anesthesia/Blood Transfusion Reactions: No Reported Reaction Past Psychological History: No Psychological Hx Reported Past Alcohol Use History: Occasional Past Drug Use History: None Reported - Past Family History Mother Family Medical History: Myocardial Infarction ([place]) Additional Family Medical History / Comment(s): mom from [place] age 56 Brother(s) Family Medical History: Cancer Father Family Medical History: Cancer General Exam Limitations: no limitations General appearance: alert, in no apparent distress Head exam: Present: normocephalic Eye exam: Present: normal appearance Neck exam: Present: normal inspection Respiratory exam: Present: normal lung sounds bilaterally. Absent: chest wall tenderness Cardiovascular Exam: Present: regular rate, normal rhythm, normal heart sounds Expanded Peripheral pulses: 2+: Radial (R), Radial (L), Posterior Tibialis (R), Posterior Tibialis (L) GI/Abdominal exam: Present: soft. Absent: tenderness Extremities exam: Present: normal inspection. Absent: pedal edema, calf tenderness Neurological exam: Present: alert Psychiatric exam: Present: normal affect, normal mood Skin exam: Present: normal color Course Vital Signs 01/16/25 07:45 Temperature 98.9 F Pulse Rate 62 Respiratory 20 Rate Blood Pressure 151/70 O2 Sat by Pulse 98 Oximetry EKG Findings - EKG Results: EKG: interpreted by ERMD, sinus rhythm, normal axis, normal QRS, normal ST/T Medical Decision Making - Medical Decision Making Was pt. sent in by a medical professional or institution (, PA, CHEMICAL MILLING PROCESSOR, urgent care, hospital, or [facility]...) When possible be specific @ -No Did you speak to anyone other than the patient for history (EMS, parent, family, police, friend...)? What history was obtained from this source @ -EMS provides history of medications and relief of symptoms prior to ER arrival Did you review nursing and triage notes (agree or disagree)? Why? @ -I reviewed and agree with nursing and triage notes Were old charts reviewed (outside hosp., previous admission, EMS record, old EKG, old radiological studies, urgent care reports/EKG's, [facility] records)? Report findings @ -No old charts were reviewed Differential Diagnosis (chest pain, altered mental status, abdominal pain women, abdominal pain men, vaginal bleeding, weakness, fever, dyspnea, syncope, headache, dizziness, GI bleed, back pain, seizure, CVA, palpatations, mental health, musculoskeletal)? @ -Differential Chest Pain: Stable Angina, Unstable Angina, STEMI, NSTEMI Aortic Dissection, Pneumothorax, Musculoskeletal, Esophageal Spasm GERD, Cholecystitis, Pancreatitis, Zoster, this is not meant to be an all-inclusive list. EKG interpreted by me (3pts min.). @ -As above X-rays interpreted by me (1pt min.). @ -Chest x-ray showed no acute process CT interpreted by me (1pt min.). @ -None done U/S interpreted by me (1pt. min.). @ -None done What testing was considered but not performed or refused? (CT, X-rays, U/S, labs)? Why? @ -None What meds were considered but not given or refused? Why? @ -None Did you discuss the management of the patient with other professionals (prof anders i.e. , PA, CHEMICAL MILLING PROCESSOR, lab, RT, psych nurse, social work case manager, food service team member, teacher, correctional officer lieutenant, field nurse case manager)? Give summary @ -Dr. Chavez will admit covering Dr. Markham Was smoking cessation discussed for >3mins.? @ -No Was critical care preformed (if so, how long)? @ -No Were there social determinants of health that impacted care today? How? (Homelessness, low income, unemployed, alcoholism, drug addiction, transportation, low edu. Level, literacy, decrease access to med. care, prison, rehab)? @ -No Was there de-escalation of care discussed even if they declined (Discuss DNR or withdrawal of care, Hospice)? DNR status @ -No What co-morbidities impacted this encounter? (DM, HTN, Smoking, COPD, CAD, Cancer, CVA, ARF, Chemo, Hep., AIDS, mental health diagnosis, sleep apnea, morbid obesity)? @ -None Was patient admitted / discharged? Hospital course, mention meds given and route, prescriptions, significant lab abnormalities, going to OR and other pertinent info. @ -Patient presents with chest discomfort relieved with aspirin and nitro. Initial evaluation unremarkable. Patient will be admitted with cardiac consult. Patient reevaluated and updated. Admission orders written. Undiagnosed new problem with uncertain prognosis? @ -No Drug Therapy requiring intensive monitoring for toxicity (Heparin, Nitro, Insulin, Cardizem)? @ -No Were any procedures done? @ -No Diagnosis/symptom? @ -Chest pain Acute, or Chronic, or Acute on Chronic? @ -Acute Uncomplicated (without systemic symptoms) or Complicated (systemic symptoms)? @ -Default Side effects of treatment? @ -No Exacerbation, Progression, or Severe Exacerbation? @ -No Poses a threat to life or bodily function? How? (Chest pain, [place], [place], pneumonia, PE, COPD, DKA, ARF, appy, cholecystitis, CVA, Diverticulitis, Homicidal, Suicidal, threat to staff... and all critical care pts) @ -Threat to cardiac function - Lab Data Result diagrams: 01/16/25 07:55 01/16/25 07:55 Lab Results 01/16/25 01/16/25 01/16/25 Range/Units 07:55 07:55 07:55 WBC 7.31 (4.50-10.00) 10*3/uL RBC 4.62 (4.10-5.20) 10*6/uL Hgb 13.2 (12.0-15.0) g/dL Hct 38.4 (37.2-46.3) % MCV 83.1 (80.0-97.0) fL MCH 28.6 (27.0-32.0) pg MCHC 34.4 (32.0-37.0) g/dL Plt Count 297 (140-440) 10*3/uL MPV 10.2 (9.5-12.2) fL Immature Gran % (Auto) 0.5 % Neutrophils % 60.5 % Lymphocytes % 28.0 % Monocytes % 7.8 % Eosinophils % 2.9 % Basophils % 0.3 % Immature Gran # 0.04 (0.00-0.04) 10*3/uL Neutrophils # 4.42 (1.80-7.70) 10*3/uL Lymphocytes # 2.05 (0.90-5.00) 10*3/uL Monocytes # 0.57 (0.20-1.00) 10*3/uL Eosinophils # 0.21 (0.04-0.35) 10*3/uL Basophils # 0.02 (0.00-0.10) 10*3/uL PT 10.6 (10.0-12.5) sec INR 0.9 (<1.2) APTT 22.4 (22.0-30.0) sec Sodium 137 (137-145) mmol/L Potassium 3.7 (3.5-5.1) mmol/L Chloride 101 (98-107) mmol/L Carbon Dioxide 24 (22-30) mmol/L Anion Gap 12 mmol/L BUN 17 (7-17) mg/dL Creatinine 0.78 (0.52-1.04) mg/dL Est GFR (CKD-EPI)AfAm >90 (>60 ml/min/1.73 sqM) Est GFR (CKD-EPI)NonAf 83 (>60 ml/min/1.73 sqM) Glucose 281 H (74-99) mg/dL Calcium 8.9 (8.4-10.2) mg/dL Magnesium 2.2 (1.6-2.3) mg/dL Total Bilirubin 1.0 (0.2-1.3) mg/dL AST 65 H (14-36) U/L ALT 89 H (4-34) U/L Alkaline Phosphatase 95 (38-126) U/L Troponin I (0.000-0.034) ng/mL Total Protein 7.6 (6.3-8.2) g/dL Albumin 4.2 (3.5-5.0) g/dL 01/16/25 Range/Units 07:55 WBC (4.50-10.00) 10*3/uL RBC (4.10-5.20) 10*6/uL Hgb (12.0-15.0) g/dL Hct (37.2-46.3) % MCV (80.0-97.0) fL MCH (27.0-32.0) pg MCHC (32.0-37.0) g/dL Plt Count (140-440) 10*3/uL MPV (9.5-12.2) fL Immature Gran % (Auto) % Neutrophils % % Lymphocytes % % Monocytes % % Eosinophils % % Basophils % % Immature Gran # (0.00-0.04) 10*3/uL Neutrophils # (1.80-7.70) 10*3/uL Lymphocytes # (0.90-5.00) 10*3/uL Monocytes # (0.20-1.00) 10*3/uL Eosinophils # (0.04-0.35) 10*3/uL Basophils # (0.00-0.10) 10*3/uL PT (10.0-12.5) sec INR (<1.2) APTT (22.0-30.0) sec Sodium (137-145) mmol/L Potassium (3.5-5.1) mmol/L Chloride (98-107) mmol/L Carbon Dioxide (22-30) mmol/L Anion Gap mmol/L BUN (7-17) mg/dL Creatinine (0.52-1.04) mg/dL Est GFR (CKD-EPI)AfAm (>60 ml/min/1.73 sqM) Est GFR (CKD-EPI)NonAf (>60 ml/min/1.73 sqM) Glucose (74-99) mg/dL Calcium (8.4-10.2) mg/dL Magnesium (1.6-2.3) mg/dL Total Bilirubin (0.2-1.3) mg/dL AST (14-36) U/L ALT (4-34) U/L Alkaline Phosphatase (38-126) U/L Troponin I <0.012 (0.000-0.034) ng/mL Total Protein (6.3-8.2) g/dL Albumin (3.5-5.0) g/dL Disposition Clinical Impression: Chest pain Disposition: ADMITTED IP TO THIS HOSP Is patient prescribed a controlled substance at d/c from ED?: No Referrals: Cordelia Markham MD [Primary Care Provider] - 1-2 days Time of Disposition: 08:56
[2025-01-16 07:53] VITALS: TEMP 98.9
[2025-01-16] MEDS: ASPIRIN 81 MG PO STA (07:58)
[2025-01-16 08:06] LABS: Basophils # (A) 0.02 10*3/uL (0.00-0.10); Basophils % (A) 0.3 %; Eosinophils # (A) 0.21 10*3/uL (0.04-0.35); Eosinophils % (A) 2.9 %; HCT 38.4 % (37.2-46.3); HGB 13.2 g/dL (12.0-15.0); Lymphocytes # (A) 2.05 10*3/uL (0.90-5.00); MCH 28.6 pg (27.0-32.0); MCHC 34.4 g/dL (32.0-37.0); MCV 83.1 fL (80.0-97.0); Mean Platelet Volume 10.2 fL (9.5-12.2); Monocytes # (A) 0.57 10*3/uL (0.20-1.00); Monocytes % (A) 7.8 %; Neutrophils # (A) 4.42 10*3/uL (1.80-7.70); Neutrophils % (A) 60.5 %; Platelet Count 297 10*3/uL (140-440); RBC 4.62 10*6/uL (4.10-5.20); RDW 14.2 % (11.5-14.5); WBC 7.31 10*3/uL (4.50-10.00)
--- NOTE | 2025-01-16 08:23 | XR ---
EXAMINATION TYPE: XR chest 2V DATE OF EXAM: 01/16/2025 8:18 AM COMPARISON: Chest radiographs from 08/07/2017 TECHNIQUE: XR chest 2V Frontal and lateral views of the chest. CLINICAL INDICATION:Female, 59 years old with history of Chest Pain; FINDINGS: Lungs/Pleura: There is no evidence of pleural effusion, focal consolidation, or pneumothorax. Chroni c senescent parenchymal change. Pulmonary vascularity: Unremarkable. Heart/mediastinum: Cardiomediastinal silhouette is unremarkable. Atherosclerotic calcifications are seen in the aorta. Musculoskeletal: No acute osseous pathology. Mild multilevel degenerative disc disease. IMPRESSION: No acute cardiopulmonary disease/process. [facility], , 01/16/2025 8:21 AM
[2025-01-16 08:27] LABS: INR 0.9 (<1.2); Partial Thromboplastin Time 22.4 sec (22.0-30.0); Prothrombin Time 10.6 sec (10.0-12.5)
[2025-01-16 08:32] LABS: ALT 89 U/L (4-34); African American GFR (CKD) >90 (>60 ml/min/1.73 sqM); Albumin 4.2 g/dL (3.5-5.0); Anion Gap 12 mmol/L; Blood Urea Nitrogen 17 mg/dL (7-17); Calcium 8.9 mg/dL (8.4-10.2); Carbon Dioxide 24 mmol/L (22-30); Chloride 101 mmol/L (98-107); Glucose 281 mg/dL (74-99); Non-African American GFR(CKD) 83 (>60 ml/min/1.73 sqM); Sodium 137 mmol/L (137-145); Total Protein 7.6 g/dL (6.3-8.2)
[2025-01-16 08:46] LABS: AST 65 U/L (14-36); Alkaline Phosphatase 95 U/L (38-126); Magnesium 2.2 mg/dL (1.6-2.3); Potassium 3.7 mmol/L (3.5-5.1)
[2025-01-16] MEDS ORDERED: NITROGLYCERIN SL TABS 0.4 MG TAB SUBLINGUAL PRN (08:57)
[2025-01-16] MEDS: NITROGLYCERIN OINT 1 INCH/GM PACKET TOPICAL SCH (09:49)
[2025-01-16] MEDS: ENOXAPARIN 40 MG/0.4 ML SYRINGE SQ SCH (11:06)
[2025-01-16] MEDS: LEVOTHYROXINE 100 MCG TAB PO SCH (11:06)
[2025-01-16] MEDS: hydroCHLOROthiazide 25 MG TAB PO SCH (11:06)
[2025-01-16] MEDS: LOSARTAN 25 MG TAB PO SCH (11:07)
[2025-01-16] MEDS: PANTOPRAZOLE 40 MG TABLET PO SCH (11:07)
[2025-01-16 12:34] VITALS: BP 130/75; PULSE 68; RESP 20
[2025-01-16] MEDS ORDERED: DAPAGLIFLOZIN PROPANEDIOL 5 MG TABLET PO SCH (15:30)
[2025-01-16] MEDS ORDERED: metFORMIN 500 MG TAB PO SCH (15:30)
--- NOTE | 2025-01-16 18:58 | P.HPIM ---
History of Present Illness H&P Date: 01/16/25 Chief Complaint: Chest heaviness Pleasant 59-year-old patient who follows with Dr. Cordelia Markham. Chronic medical conditions include hypothyroid, GERD, diabetes, hypertension. This morning patient noticed some numbness in the left arm. She noticed chest pressure. And some chest pain. Decided to going to work. At work the chest pain became more prominent. Coming and going. Fully decided to come in here. There is no dizziness no lightheadedness no perspiration. No shortness of breath. Patient had a stress test in the remote past. Review of systems: GEN.: None EYES: None HEENT: None NECK: None RESPIRATORY: None CARDIOVASCULAR: As above GASTROINTESTINAL: None GENITOURINARY: None MUSCULOSKELETAL: None LYMPHATICS: None HEMATOLOGICAL: None PSYCHIATRY: None NEUROLOGICAL: None Social history: Lives alone. 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 Physical examination: VITAL SIGNS: 98.9, 62, 20, 132 x 71, 95% room air GENERAL: [BMI 36, sitting up chair awake slightly anxious. EYES: Pupils equal. Conjunctiva kristian l. HEENT: External appearance of nose and ears normal, oral cavity grossly normal. NECK: JVD not raised; masses not palpable. HEART: First and second heart sounds are normal; no edema. LUNGS: Respiratory rate normal; clear to auscultation. ABDOMEN: Soft, nontender, liver spleen not palpable, no masses palpable. PSYCH: Alert and oriented x3; mood and affect bit anxious l. MUSCULOSKELETAL:No Clubbing/cyanosis;muscles-grossly intact NEUROLOGICAL: Cranial nerves grossly intact; no facial asymmetry, power and sensation grossly intact. LYMPHATICS: No lymph nodes palpable in the axilla and neck INVESTIGATIONS, reviewed in the clinical context: January 16, 2025: White count 7.3 hemoglobin 13.2 platelets 297 sodium 137 potassium 3.7 creatinine 0.78 Troponin I less than 0.012 x 3 AST 65 ALT 89 EKG tracing personally reviewed by me-normal sinus rhythm. Nonspecific T wave changes. Chest x-ray film personally reviewed by me-unremarkable Assessment plan: - Unstable angina in a patient with cardiac risk factors including obesity, hypertension, diabetes,. Troponin negative. Nonspecific T wave changes EKG. Aspirin. Nitropaste. Cardiology consulted Will need a stress test - Diabetes mellitus type 2 on oral hypoglycemic Diabetic diet. Follow Accu-Cheks with sliding scale. Metformin. Jardiance. - Hypothyroid Levothyroxine 200 mcg a day - GERD Omeprazole 40 mg a day - Essential hypertension Cozaar, hydrochlorothiazide - Obesity BMI 36 Weight loss measures Care was discussed with the patient. Did inform her that she will be seen by cardiology will need a stress test. Patient is very anxious that she really cannot stay as she has things to attend to. I reinforced the importance of getting worked up so that cardiac complaints can be worked up. Past Medical History Past Medical History: COPD, GERD/Reflux, Thyroid Disorder History of Any Multi-Drug Resistant Organisms: None Reported Past Surgical History: Uterine Ablation Additional Past Surgical History / Comment(s): "surgury on mucsles of eyes" Past Anesthesia/Blood Transfusion Reactions: No Reported Reaction Past Psychological History: No Psychological Hx Reported Past Alcohol Use History: Occasional Past Drug Use History: None Reported - Past Family History Mother Family Medical History: Myocardial Infarction ([place]) Additional Family Medical History / Comment(s): mom from [place] age 56 Brother(s) Family Medical History: Cancer Father Family Medical History: Cancer Medications and Allergies Home Medications Medication Instructions Recorded Confirmed Type Empagliflozin [Jardiance] 10 mg PO DAILY@1530 01/16/25 01/16/25 History Levothyroxine Sodium 200 mcg PO AC-BRKFST 01/16/25 01/16/25 History Losartan [Cozaar] 25 mg PO AC-BRKFST 01/16/25 01/16/25 History Omeprazole 40 mg PO DAILY 01/16/25 01/16/25 History hydroCHLOROthiazide [Hydrodiuril] 25 mg PO AC-BRKFST 01/16/25 01/16/25 History metFORMIN HCL ER [Glucophage XR] 500 mg PO DAILY@1530 01/16/25 01/16/25 History Allergies Allergy/AdvReac Type Severity Reaction Status Date / Time No Known Allergies Allergy Verified 01/16/25 09:33 Physical Exam Vitals: Vital Signs Temp Pulse Resp BP Pulse Ox 01/16/25 12:00 68 20 130/75 96 01/16/25 11:00 66 20 144/83 96 01/16/25 09:30 56 L 16 133/73 96 01/16/25 09:00 61 16 150/87 95 01/16/25 08:30 65 16 138/75 96 01/16/25 08:00 66 14 132/71 95 01/16/25 07:45 98.9 F 62 20 151/70 98 Intake and Output 01/16/25 01/16/25 01/16/25 06:59 14:59 22:59 Other: Weight 104.326 kg Results CBC & Chem 7: 01/16/25 07:55 01/16/25 07:55 Labs: Abnormal Lab Results - Last 24 Hours (Table) 01/16/25 Range/Units 07:55 Glucose 281 H (74-99) mg/dL AST 65 H (14-36) U/L ALT 89 H (4-34) U/L
--- NOTE | 2025-01-16 18:59 | P.DS ---
Providers Date of admission: 01/16/25 08:57 Expected date of discharge: 01/16/25 Attending physician: Fahad Chavez Consults: 01/16/25 08:57 Consult Physician Urgent Consulting Provider: Kal Patino Consult Reason/Comments: cp Do you want consulting provider notified?: Yes Primary care physician: Cordelia Markham [place] [facility] Course: Chief Complaint: Chest heaviness Pleasant 59-year-old patient who follows with Dr. Cordleia Markham. Chronic medical conditions include hypothyroid, GERD, diabetes, hypertension. This morning patient noticed some numbness in the left arm. She noticed chest pressure. And some chest pain. Decided to going to work. At work the chest pain became more prominent. Coming and going. Fully decided to come in here. There is no dizziness no lightheadedness no perspiration. No shortness of breath. Patient had a stress test in the remote past. Nurse called later this afternoon to inform that patient left AMA and did not want to stay for further workup Review of systems: GEN.: None EYES: None HEENT: None NECK: None RESPIRATORY: None CARDIOVASCULAR: As above GASTROINTESTINAL: None GENITOURINARY: None MUSCULOSKELETAL: None LYMPHATICS: None HEMATOLOGICAL: None PSYCHIATRY: None NEUROLOGICAL: None Social history: Lives alone. 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 Physical examination: VITAL SIGNS: 98.9, 62, 20, 132 x 71, 95% room air GENERAL: [BMI 36, sitting up chair awake slightly anxious. EYES: Pupils equal. Conjunctiva kristian l. HEENT: External appearance of nose and ears normal, oral cavity grossly normal. NECK: JVD not raised; masses not palpable. HEART: First and second heart sounds are normal; no edema. LUNGS: Respiratory rate normal; clear to auscultation. ABDOMEN: Soft, nontender, liver spleen not palpable, no masses palpable. PSYCH: Alert and oriented x3; mood and affect bit anxious l. MUSCULOSKELETAL:No Clubbing/cyanosis;muscles-grossly intact NEUROLOGICAL: Cranial nerves grossly intact; no facial asymmetry, power and sensation grossly intact. LYMPHATICS: No lymph nodes palpable in the axilla and neck INVESTIGATIONS, reviewed in the clinical context: January 16, 2025: White count 7.3 hemoglobin 13.2 platelets 297 sodium 137 potassium 3.7 creatinine 0.78 Troponin I less than 0.012 x 3 AST 65 ALT 89 EKG tracing personally reviewed by me-normal sinus rhythm. Nonspecific T wave changes. Chest x-ray film personally reviewed by me-unremarkable Assessment plan: - Unstable angina in a patient with cardiac risk factors including obesity, hypertension, diabetes,. Troponin negative. Nonspecific T wave changes EKG. Aspirin. Nitropaste. Cardiology consulted Will need a stress test - Diabetes mellitus type 2 on oral hypoglycemic Diabetic diet. Follow Accu-Cheks with sliding scale. Metformin. Jardiance. - Hypothyroid Levothyroxine 200 mcg a day - GERD Omeprazole 40 mg a day - Essential hypertension Cozaar, hydrochlorothiazide - Obesity BMI 36 Weight loss measures Care was discussed with the patient. Did inform her that she will be seen by cardiology will need a stress test. Patient is very anxious that she really cannot stay as she has things to attend to. I reinforced the importance of getting worked up so that cardiac complaints can be worked up. Disposition: Left AMA Past Medical History Past Medical History: COPD, GERD/Reflux, Thyroid Disorder History of Any Multi-Drug Resistant Organisms: None Reported Past Surgical History: Uterine Ablation Additional Past Surgical History / Comment(s): "surgury on mucsles of eyes" Past Anesthesia/Blood Transfusion Reactions: No Reported Reaction Past Psychological History: No Psychological Hx Reported Past Alcohol Use History: Occasional Past Drug Use History: None Reported Plan - Discharge Summary New Discharge Prescriptions: No Action hydroCHLOROthiazide [Hydrodiuril] 25 mg PO AC-BRKFST Losartan [Cozaar] 25 mg PO AC-BRKFST metFORMIN HCL ER [Glucophage XR] 500 mg PO DAILY@1530 Omeprazole 40 mg PO DAILY Levothyroxine Sodium 200 mcg PO AC-BRKFST Empagliflozin [Jardiance] 10 mg PO DAILY@1530 Discharge Medication List Empagliflozin [Jardiance] 10 mg PO DAILY@15301/16/25 [History] Levothyroxine Sodium 200 mcg PO AC-BRKFST 01/16/25 [History] Losartan [Cozaar] 25 mg PO AC-BRKFST 01/16/25 [History] Omeprazole 40 mg PO DAILY 01/16/25 [History] hydroCHLOROthiazide [Hydrodiuril] 25 mg PO AC-BRKFST 01/16/25 [History] metFORMIN HCL ER [Glucophage XR] 500 mg PO DAILY@1530 01/16/25 [History] Follow up Appointment(s)/Referral(s): Cordelia Markham MD [Primary Care Provider] - 1-2 days Discharge Disposition: LEFT AGAINST MEDICAL ADVICE
[2025-01-17] MEDS ORDERED: ASPIRIN 325 MG TAB PO SCH (09:00)
== END 2025-01-16 13:25 | disposition left against medical advice (07) ==
LOC: EC 07:42 → 6NMEDSUR 08:57 → 1SOBS 12:20
PROVIDERS: ADMIT Hospitalist; ATTEND Hospitalist
DX: I20.0 Unstable angina (principal); E03.9 Hypothyroidism, unspecified; E11.9 Type 2 diabetes mellitus without complications; I10 Essential (primary) hypertension; J44.9 Chronic obstructive pulmonary disease, unspecified; K21.9 Gastro-esophageal reflux disease without esophagitis; E66.9 Obesity, unspecified; Z79.51 Long term (current) use of inhaled steroids; Z79.84 Long term (current) use of oral hypoglycemic drugs; Z79.890 Hormone replacement therapy; Z82.49 Family history of ischemic heart disease and other diseases of the circulatory system; Z79.899 Other long term (current) drug therapy; Z53.29 Procedure and treatment not carried out because of patient's decision for other reasons; Z68.36 Body mass index [BMI] 36.0-36.9, adult
CPT/HCPCS: 99285; 36415; 93005; 80053; 83735; 84484; 85025; 85610; 85730; 71046; G0378 ×2